=== PATIENT | male | born 1955 | race Hispanic/Latino ===

== ENCOUNTER 2017-07-21 16:15 | Inpatient (IN) | payer OTHER ==
[~2017-07-21] VITALS: Ht 165.1 cm; Wt 63.8 kg
[2017-07-21 17:01] LABS: ABSOLUTE BASOPHIL COUNT 0.1 /CUMM (0.0-0.2); ABSOLUTE EOSINOPHIL COUNT 1.6 /CUMM (0.0-0.7); ABSOLUTE GRANULOCYTE CT 9.2 /CUMM (1.4-6.5); ABSOLUTE LYMPH COUNT 0.9 /CUMM (1.2-3.4); ABSOLUTE MONOCYTE COUNT 0.7 /CUMM (0.10-0.60); BASOPHIL % 0.6 % (0.0-2.0); GRANULOCYTE % 73.8 % (42.2-75.2); HEMATOCRIT 41.4 % (42-52); MEAN CORPUSCULAR HGB 26.2 PG (27.0-31.0); MEAN CORPUSCULAR HGB CONC 32.7 G/DL (33.0-37.0); MEAN CORPUSCULAR VOLUME 80.1 FL (80.0-94.0); MEAN PLATELET VOLUME 9.2 FL (7.4-10.4); PLATELET COUNT 382 /CUMM (130-400); RBC DISTRIBUTION WIDTH 18.6 % (11.5-14.5); RED BLOOD CELL CT 5.17 /CUMM (4.70-6.10); WHITE BLOOD CELL COUNT 12.4 /CUMM (4.8-10.8)
--- NOTE | 2017-07-21 17:23 | ED GENERAL ADULT ---
History of Present Illness General Chief Complaint: Altered Mental Status Stated Complaint: HYPOGLYCEMIA Source: patient, family, EMS Exam Limitations: no limitations Allergies Coded Allergies: NO KNOWN ALLERGIES (01/23/13) Triage Note: BROUGHT IN TI THE ED FRO HYPOGLYCEMIA. FOUND TO BE AT 46 ON THE FIELD. RECEIVED DEXTROSE 10% IV. ARRIVES ALERT AND LETHARGIC. Triage Nurses Notes Reviewed? yes Onset: Abrupt Duration: hour(s): (1), better, changing over time, continues in ED Timing: single episode today Injury Environment: home Severity: moderate, severe No Modifying Factors: none HPI: 61-year-old male with past medical history of end-stage renal disease on peds elastosis and is limited diabetes since her evaluation of ALTERED status. According to family he was acutely confused, shaky, sweaty. They called 911 when EMS arrived they noted that his blood sugar was in the 30s. They started on D10. At time he arrived here his blood sugar to 75. Patient has no complaints himself. He denies chest pain shortness of breath nausea vomiting fever slurred speech weakness. He does note that he took his insulin today without eating a lunch. His family is at bedside reports that his mental status has returned to baseline. (Lino Ch) Vital Signs & Intake/Output Vital Signs & Intake/Output Vital Signs Date Time Temp Pulse Resp B/P B/P Pulse O2 O2 Flow FiO2 Mean Ox Delivery Rate 07/21 2058 96.2 81 18 162/72 97 Room Air 07/21 1842 93.6 72 18 139/72 98 Room Air 07/21 1632 64 16 147/64 99 Room Air (Christiana FREEDMAN,Lorenzo Tovar) Past History Travel History Traveled to [place] past 21 day No Medical History Any Pertinent Medical History? see below for history Renal: DIALYSIS Endocrine: DM Surgical History Surgical History: non-contributory Psychosocial History Who do you live with Patient/Self What is your primary language Thai Tobacco Use: Quit >30 days ago Family History Hx Contributory? No (Lino Ch) Review of Systems Review of Systems Constitutional: Reports: chills, diaphoresis. EENTM: Reports: no symptoms. Respiratory: Reports: no symptoms. Cardiovascular: Reports: no symptoms. GI: Reports: no symptoms. Genitourinary: Reports: no symptoms. Musculoskeletal: Reports: no symptoms. Skin: Reports: no symptoms. Neurological/Psychological: Reports: see HPI, confusion. Hematologic/Endocrine: Reports: no symptoms. Immunologic/Allergic: Reports: no symptoms. All Other Systems: Reviewed and Negative (Lino Ch) Physical Exam Physical Exam General Appearance: well developed/nourished, no apparent distress, alert, awake Head: atraumatic, normal appearance Eyes: Bilateral: normal appearance, PERRL, EOMI. Ears, Nose, Throat: normal pharynx, normal ENT inspection, hearing grossly normal Neck: normal inspection, supple, full range of motion Respiratory: normal breath sounds, chest non-tender, no respiratory distress, lungs clear Cardiovascular: regular rate/rhythm, normal peripheral pulses Peripheral Pulses: 2+ radial (R), 2+ radial (L) Gastrointestinal: normal bowel sounds, soft, non-tender, no organomegaly Back: normal inspection, normal range of motion, no vertebral tenderness, NO cva TENDERNESS Extremities: normal inspection, normal range of motion, no edema Neurologic/Psych: no motor/sensory deficits, awake, alert, oriented x 3, normal gait Skin: intact, normal color, warm/dry Lymphatic: no anterior cervical terra Core Measures ACS in differential dx? No CVA/TIA Diagnosis: No Sepsis Present: No Sepsis Focused Exam Completed? No (Lino Ch) Progress Differential Diagnoses I considered the following diagnoses in my evaluation of the patient: [Sepsis, pneumonia, UTI, hypoglycemia, cellulitis, CVA/TIA, drug intoxication, alcohol intoxication] Plan of Care: Orders Procedure Date/time Status Renal Dialysis Diet 07/22 B Active CBC WITHOUT DIFFERENTIAL 07/22 06 Active BASIC ELECTROLYTES PLUS BUN&CR 07/22 06 Active Lab Add-on Test 07/21 2314 Active Pathway - chart 07/22 2311 Active House Staff 07/22 2311 Active SPECIMEN TO BE OBTAINED 07/22 2311 Active ECHOCARDIOGRAM 07/22 2311 Active Saline Lock 07/21 2252 Active Misc Message 07/21 2252 Active ED Holding Orders 07/21 2252 Active Admit to inpatient 07/21 2252 Active Vital Signs 07/21 2252 Active Code Status 07/21 2252 Active Patient Data 07/21 2146 Active Add-on Test (ER Only) 07/21 2138 Active Add-on Test (ER Only) 07/22 2039 Active BLOOD CULTURE 07/21 1819 Active B-TYPE NATRIURETIC PEP (BNP) 07/21 1653 Complete Add-on Test (ER Only) 07/21 164 Active URINE DRUG SCREEN FOR ER ONLY 07/21 164 Complete EKG 07/21 164 Active URINALYSIS 07/21 161 Complete TROPONIN LEVEL 07/21 161 Complete LACTIC ACID 07/21 161 Complete ETHANOL 07/21 161 Complete COMPREHENSIVE METABOLIC PANEL 07/21 161 Complete CBC WITHOUT DIFFERENTIAL 07/21 161 Complete Weight 07/21 UNK Active VTE Mechanical Prophylaxis 07/21 UNK Active Vital Signs 07/21 UNK Active Intake & Output 07/21 UNK Active FingerStick- Glucose 07/21 UNK Active Activity/Ambulation 07/21 UNK Active Current Medications Sig/[place] Start time Last Medication Dose Stop Time Status Admin Heparin Sodium 5,000 UNIT Q8 07/22 0600 UNVr (Porcine) Laboratory Tests 07/21/172009: Urine Opiates Screen < 100, Methadone Screen < 40, Barbiturate Screen < 60, Ur Phencyclidine Scrn < 6.00, Amphetamines Screen < 100, U Benzodiazepines Scrn < 85, Urine Cocaine Screen < 50, Urine Cannabis Screen < 5.00, Urinalysis LIGHT H , Urine Color YEL, Urine Clarity HAZY H, Urine pH 7.0, Ur Specific [place] 1.015, Urine Protein >=300 H, Urine Ketones NEG, Urine Nitrite NEG, Urine Bilirubin NEG, Urine Urobilinogen 0.2, Ur Leukocyte Esterase MOD H, Ur Microscopic SEDIMENT EXAMINED, Urine RBC RARE, Urine WBC > 75 H, Ur Epithelial Cells RARE, Urine Bacteria RARE H, Urine Hemoglobin MOD H, Urine Glucose 250 H 07/21/171917: Lactic Acid Cancelled 07/21/17 165: Anion Gap 18 H, Estimated GFR 5 L, BUN/Creatinine Ratio 4.7 L, Glucose 106 H , Lactic Acid 0.7, Calcium 8.5, Total Bilirubin 0.6, AST 28, ALT 77 H, Alkaline Phosphatase 181 H, Troponin I < 0.01, Ndr-Y-Hzgxwabahim Pept 82928 H, Total Protein 6.7, Albumin 3.7, Globulin 3.0, Albumin/Globulin Ratio 1.2, CBC w Diff NO MAN DIFF REQ, RBC 5.17, MCV 80.1, MCH 26.2 L, MCHC 32.7 L, RDW 18.6 H, MPV 9.2, Gran % 73.8, Lymphocytes % 7.0 L, Monocytes % 5.6, Eosinophils % 13.0 H, Basophils % 0.6, Absolute Granulocytes 9.2 H, Absolute Lymphocytes 0.9 L, Absolute Monocytes 0.7 H, Absolute Eosinophils 1.6, Absolute Basophils 0.1, Serum Alcohol < 10.0 Microbiology 07/21 1818 BLOOD: Blood Culture - ORD 07/21 1818 BLOOD: Blood Culture - ORD Patient seen and evaluated. He is here with altered mental status. He is found to have a blood sugar of 80s in the field. He started on D10 here his sugar has increased to 75. He started returning to his baseline. According the family his mental status has returned to baseline after D10. On arrival to the ER patient is a rectal temp of 93.6. He is placed on the bear hugger EKG labs chest x-ray ordered. CT scan of the head and chest ordered. Blood work shows a white blood cell count of 12.4 with left shift. Chest x-ray suggests a left lower lobe pneumonia. Additionally urine shows signs of infection cultures ordered. Patient will be started on IV Rocephin and Zithromax for to be required pneumonia/possible UTI. Patient requires admission to the hospital for further evaluation and treatment case discussed with Dr. Villeda he agrees. Spoke with Dr. Bynum from nephrology who recommends contacting the patient's on -call sugar cane planting equipment operator Dr. Amaya for dialysis orders. Dr. Bynum does not KNOW the patient AND unable put in orders. CT scan of brain is within normal limits. CT scan of the chest suggests pulmonary edema as opposed to infiltrate. BNP ordered on. Patient is on peritoneal dialysis. He may be fluid overloaded usually does his dialysis at night. Diagnostic Imaging: Viewed by Me: Radiology Read. Discussed w/RAD: Radiology Read. Radiology Impression: PATIENT: JERI CHRISTIAN PRESENT AGE: 61 PATIENT ACCOUNT NO: [id number] : 56 LOCATION: [facility] ORDERING PHYSICIAN: Lino NOWAK SERVICE DATE: 07/21/17 EXAM TYPE: RAD - XRY-PORTABLE CHEST XRAY EXAMINATION: XR PORTABLE CHEST CLINICAL INFORMATION: Pneumonia, mental status change COMPARISON: 07/28/2008 chest x-ray TECHNIQUE: Portable AP view of the chest was obtained. FINDINGS: The cardiomediastinal silhouette is unremarkable. No pulmonary venous congestion. There is hazy interstitial pulmonary opacity in the right mid lung. The left lung is clear. No sizable pleural effusion or pneumothorax. The visualized bones are unremarkable. IMPRESSION: Hazy pulmonary interstitial opacity in the right mid lung can represent pneumonia. Clinical correlation is advised. DICTATED BY: Cruz Flynn MD DATE/TIME DICTATED:07/21/171730 LEASE PICKER:MIRELA DATE/TIME TRANSCRIBED:07/21/171730 CONFIDENTIAL, DO NOT COPY WITHOUT APPROPRIATE AUTHORIZATION. <Electronically signed in Other Vendor System> SIGNED BY: Cruz Flynn MD 07/21/171739, PATIENT: JERI CHRISTIAN PRESENT AGE: 61 PATIENT ACCOUNT NO: [id number] : 56 LOCATION: [facility] ORDERING PHYSICIAN: Lino NOWAK SERVICE DATE: 07/21/17 EXAM TYPE: CAT - CT HEAD WO IV CONTRAST EXAMINATION: CT HEAD WITHOUT CONTRAST CLINICAL INFORMATION: Lethargic COMPARISON: None TECHNIQUE: Contiguous axial imaging was performed from the skull base to vertex without intravenous administration of contrast. DLP: 621 mGy-cm FINDINGS: There is no evidence of acute intracranial hemorrhage or territorial infarction. No abnormal mass effect or midline shift is seen. Díaz to white matter differentiation is well preserved. No extra-axial fluid collections are identified. The ventricles are normal in size. There is no abnormal attenuation within the brain parenchyma. The osseous structures and soft tissues are normal. The mastoid air cells and visualized portions of the paranasal sinuses are well aerated. IMPRESSION: No CT evidence of acute intracranial bleed, no mass. No CT evidence of acute infarct. DICTATED BY: Cheyanne Dinh MD DATE/TIME DICTATED:07/21/172058 LEASE PICKER:MIRELA DATE/TIME TRANSCRIBED:07/21/172058 CONFIDENTIAL, DO NOT COPY WITHOUT APPROPRIATE AUTHORIZATION. <Electronically signed in Other Vendor System> SIGNED BY: Cheyanne Dinh MD 07/21/172103 Initial ED EKG: normal sinus rhythm, LEFT ATRIAL ABN qtc 495 (Myke NOWAK,Lino) Departure Departure Disposition: STILL A PATIENT Condition: Stable Clinical Impression Primary Impression: Pneumonia Qualifiers: Pneumonia type: due to unspecified organism Laterality: left Lung location: unspecified part of lung Qualified Code: J18.9 - Pneumonia, unspecified organism Secondary Impressions: Pulmonary edema Qualifiers: Chronicity: acute Qualified Code: J81.0 - Acute pulmonary edema Referrals: Ashley Ortiz APRN (PCP/Family) Departure Forms: Customer Survey General Discharge Information Admission Note Spoke With: Warren Lomax MD Documentation of Exam: Documentation of any treatments & extenuating circumstances including Concerns Regarding Discharge (functional status, medication knowledge or non-compliance, living conditions, etc.) that warrant an admission rather than observation: [IV antibiotics, IV fluids, serial labs, follow-up cultures, medication adjustment, serial chest x-rays] (Lino Ch) PA/MODEL TECHNICIAN Co-Sign Statement Statement: ED Attending supervision documentation- [x] I saw and evaluated the patient. I have also reviewed all the pertinent lab results and diagnostic results. I agree with the findings and the plan of care as documented in the PA's/MODEL TECHNICIAN's documentation. 5.27.18, 21:22... pt hypothermic w/ evidence of pneumonia, now comfortable in ED... merits admission for iv abx, jeanna stover. [] I have reviewed the ED Record and agree with the PA's/MODEL TECHNICIAN's documentation. [] Additions or exceptions (if any) to the PAs/MODEL TECHNICIAN's note and plan are summarized below: [] (Christiana FREEDMAN,Lorenzo Tovar) Critical Care Note Critical Care Note Critical Care Time: 30-74 min (Christiana FREEDMAN,Lorenzo Tovar)
--- NOTE | 2017-07-21 17:40 | RADIOLOGY REPORT ---
EXAMINATION: XR PORTABLE CHEST CLINICAL INFORMATION: Pneumonia, mental status change COMPARISON: 07/28/2008 chest x-ray TECHNIQUE: Portable AP view of the chest was obtained. FINDINGS: The cardiomediastinal silhouette is unremarkable. No pulmonary venous congestion. There is hazy interstitial pulmonary opacity in the right mid lung. The left lung is clear. No sizable pleural effusion or pneumothorax. The visualized bones are unremarkable. IMPRESSION: Hazy pulmonary interstitial opacity in the right mid lung can represent pneumonia. Clinical correlation is advised.
--- NOTE | 2017-07-21 21:04 | CT SCAN REPORT ---
EXAMINATION: CT HEAD WITHOUT CONTRAST CLINICAL INFORMATION: Lethargic COMPARISON: None TECHNIQUE: Contiguous axial imaging was performed from the skull base to vertex without intravenous administration of contrast. DLP: 621 mGy-cm FINDINGS: There is no evidence of acute intracranial hemorrhage or territorial infarction. No abnormal mass effect or midline shift is seen. Díaz to white matter differentiation is well preserved. No extra-axial fluid collections are identified. The ventricles are normal in size. There is no abnormal attenuation within the brain parenchyma. The osseous structures and soft tissues are normal. The mastoid air cells and visualized portions of the paranasal sinuses are well aerated. IMPRESSION: No CT evidence of acute intracranial bleed, no mass. No CT evidence of acute infarct.
--- NOTE | 2017-07-21 21:13 | CT SCAN REPORT ---
EXAMINATION: CT CHEST WO IV CONTRAST. CLINICAL INFORMATION: Hypothermia cough pneumonia COMPARISON: 2008 TECHNIQUE: Multidetector volumetric CT imaging of the chest was done. Axial MIP volume rendering provided. Sagittal and coronal reformatted images were obtained. CONTRAST: Noncontrasted study. DLP: 197 mGy-cm FINDINGS: CAGER OPERATOR: LINES/TUBES: Truck Engine Assembler reviewed, no lines. LUNGS: Lung parenchyma: The heart is enlarged, there is pulmonary vascular congestion. There is mild interstitial edema, patchy groundglass opacities likely sequela of edema rather than true infection. Lung nodules/masses: There are no suspicious nodules or masses, there are tiny scattered densities 2 mm or less, difficult to assess given the degree of congestion. AIRWAYS: Trachea and bronchi are normal. PLEURA: No significant effusion. MEDIASTINUM AND STEPHON: No mediastinal, hilar or axillary lymphadenopathy. No mediastinal mass. VESSELS: HEART AND PERICARDIUM: Thoracic aorta is normal in size. The heart is enlarged. No pericardial effusion. There are coronary calcifications. Pulmonary arteries are normal in size. LOWER NECK, AXILLA: The visualized thyroid gland is unremarkable. No axillary mass or adenopathy. VISUALIZED ABDOMEN: There is mild ascites, fluid around the liver. Mild fluid around the spleen. Heavy vascular calcifications of the aorta. CHEST WALL AND BONES: No chest wall mass. The visualized bony thorax is within normal limits. IMPRESSION: 1. Cardiomegaly. 2. Pulmonary vascular congestion, there are patchy groundglass opacities and interlobular septal thickening, this is most likely mild interstitial edema rather than infiltrates. Difficult to assess for underlying subtle infiltrates given the degree of edema. 3. No suspicious lung mass. There are tiny scattered densities 2 mm or less. 4. Incidental finding was made of fluid in the abdomen ascites.
--- NOTE | 2017-07-21 21:56 | History & Physical ---
Nandini Barton 07/21/172148: General Information and HPI MD Statement: I have seen and personally examined JERI WOLFE and documented this H&P. The patient is a 61 year old M who presented with a patient stated chief complaint of [Hypoglycemia/PNA]. Source of Information: patient, old records Exam Limitations: language barrier History of Present Illness: Mr. Wolfe is a 61yo M w/ PMH of ESRD, diabetes presented to the ER with hypoglycemia of 46/hypothermia of 93.1. Patient stated that he during lunch. Patient was then placed into IV dextrose push, and the blood sugar went up to 100 after treatment, and patient's become more alert and oriented 4. During our clinical interaction, patient was Italian-speaking, and the nephew was at bedside to provide translation. Per nephew, patient has been living with the nephews family for the past 2 years, was occasional similar symptoms every once in a while when patient got hypoglycemic. Today patient was injected his regular dose of morning insulin (supposed to be long-acting) later than the scheduled time, and patient skipped lunch after. Around 1:00 in the afternoon, patient was found to be on bed, confused, with diaphoresis and body shaking, and was found to be hypoglycemic around 40s. Patient was then brought to [place] [facility] for further evaluation. Patient was also complaining of some fatigue/not feeling well starting last Saturday, with occasional" feeling of hot" however denied any fevers/chills/body shaking/shortness of breath/chest pain. Patient at baseline has a dry cough on and off, without any production of sputum in the past few days. Patient also endorsed an episode of loose stool today, however denied any recent constipation/diarrhea. Patient had a blood work done about last , and was turned out to be normal. However no records was found in the past 10 years in our system, and patient was last admitted to [facility] in 2008 for chest pain, which turned out to be stress test negative. At baseline patient was alert and oriented x4, and independent on living, despite limited exertional tolerance that patient may become shortness of breath after flight of stairs. Patient was regularly being taken care at [facility] for previous admissions, with last admission about 2 months ago at [facility]. Patient was also seen a chronometer adjuster at [place], and claims to be had echocardiograph done about 2 weeks ago, was unremarkable results. Patient was also taking care on dialysis by public welfare director at [place], and patient was conducting peritoneal dialysis at home by himself twice daily, without much complication noted. Patient's diabetes and insulin regimen was managed by the PCP only at this point. Patient had family history of diabetes. About 2 years ago, patient also had a diabetic induced food infection of the right lower extremity, which advanced into gangrene/osteomyelitis, and part of the right heel has to be resected. Patient was at baseline independent walking without a walker/cane. During our clinical interaction, patient denied recent travel/sick contacts, fever/lightheadedness/diaphoresis/night sweat/weight change/cough/SOB/Chest Pain /Palpitation/Abdominal pain/bowel movement or urinary abnormality, or other skin /musculoskeletal/neurological/mood disorders, or dietary/appetite change. -Smoking: former smoker quitted 18yrs -Alcohol: rare use -Rec Drus: denied Allergies/Medications Allergies: Coded Allergies: NO KNOWN ALLERGIES (01/23/13) Past History Travel History Traveled to [place] past 21 day No Medical History Renal: DIALYSIS Endocrine: DM Surgical History Surgical History: Right heel debridement from osteomyelitis/gangarene Past Family/Social History Psychosocial History Smoking Status: Former Smoker (quitted >18yrs) ETOH Use: occasional use Illicit Drug Use: denies illicit drug use Review of Systems Review of Systems Constitutional: Reports: see HPI. Exam & Diagnostic Data Last 24 Hrs of Vital Signs/I&O Vital Signs Date Time Temp Pulse Resp B/P B/P Pulse O2 O2 Flow FiO2 Mean Ox Delivery Rate 07/21 2058 96.2 81 18 162/72 97 Room Air 07/21 1842 93.6 72 18 139/72 98 Room Air 07/21 1632 64 16 147/64 99 Room Air Physical Exam General Appearance Alert, Oriented X3, Cooperative, No Acute Distress Skin No Rashes, No Breakdown, No Significant Lesion Skin Temp/Moisture Exam: Warm/Dry Sepsis Skin Exam (color): Normal for Ethnicity HEENT Atraumatic, PERRLA, dry musosa Neck Supple, mild JVD Cardiovascular Regular Rate Lungs Clear to Auscultation, Normal Air Movement Abdomen Normal Bowel Sounds, distended with +ve ascites finding on imaging, no tenderness Neurological Normal Speech, Strength at 5/5 X4 Ext, Sensation Intact Extremities No Edema, Normal Pulses, No Tenderness/Swelling, s/p right heel resection from hx of osteomylities/gangarene Last 24 Hrs of Labs/Wilfr[place]: Laboratory Tests 07/21/172009: Urine Opiates Screen < 100, Methadone Screen < 40, Barbiturate Screen < 60, Ur Phencyclidine Scrn < 6.00, Amphetamines Screen < 100, U Benzodiazepines Scrn < 85, Urine Cocaine Screen < 50, Urine Cannabis Screen < 5.00, Urinalysis LIGHT H , Urine Color YEL, Urine Clarity HAZY H, Urine pH 7.0, Ur Specific [place] 1.015, Urine Protein >=300 H, Urine Ketones NEG, Urine Nitrite NEG, Urine Bilirubin NEG, Urine Urobilinogen 0.2, Ur Leukocyte Esterase MOD H, Ur Microscopic SEDIMENT EXAMINED, Urine RBC RARE, Urine WBC > 75 H, Ur Epithelial Cells RARE, Urine Bacteria RARE H, Urine Hemoglobin MOD H, Urine Glucose 250 H 07/21/178: Lactic Acid Cancelled 07/21/17 1653: Anion Gap 18 H, Estimated GFR 5 L, BUN/Creatinine Ratio 4.7 L, Glucose 106 H , Lactic Acid 0.7, Calcium 8.5, Total Bilirubin 0.6, AST 28, ALT 77 H, Alkaline Phosphatase 181 H, Troponin I < 0.01, Tuj-F-Ozgcrynirtc Pept 86075 H, Total Protein 6.7, Albumin 3.7, Globulin 3.0, Albumin/Globulin Ratio 1.2, CBC w Diff NO MAN DIFF REQ, RBC 5.17, MCV 80.1, MCH 26.2 L, MCHC 32.7 L, RDW 18.6 H, MPV 9.2, Gran % 73.8, Lymphocytes % 7.0 L, Monocytes % 5.6, Eosinophils % 13.0 H, Basophils % 0.6, Absolute Granulocytes 9.2 H, Absolute Lymphocytes 0.9 L, Absolute Monocytes 0.7 H, Absolute Eosinophils 1.6, Absolute Basophils 0.1, Serum Alcohol < 10.0 Microbiology 07/21 1818 BLOOD: Blood Culture - ORD 07/21 1818 BLOOD: Blood Culture - ORD Assessment/Plan Assessment: On admission, Vitals: Currently stable afebrile, rectal temp improved 96.2, BP 162/72, 97% on room air -CBC: Mild leukocytosis 12.4, H/H 13.5/41.4, -BMP: ESRD with creatinine 10.9, glucose 106, slightly elevated ALT 77, alk phos 181, troponin negative, -UA/Microbiology: UA positive for LE, pyuria -Chest CT: 1. Cardiomegaly. 2. Pulmonary vascular congestion, there are patchy groundglass opacities and interlobular septal thickening, this is most likely mild interstitial edema rather than infiltrates. Difficult to assess for underlying subtle infiltrates given the degree of edema. 3. No suspicious lung mass. There are tiny scattered densities 2 mm or less. 4. Incidental finding was made of fluid in the abdomen ascites. Problem list/Assessment/Hospital Course: #Insulin/ESRD induced hypoglycemia episodes: Taking into account of patient's late administered insulin the morning/skip lunch/ESRD induced slowed insulin clearance #Hypothemia, resolved s/p bear hugger #ESRD pending peritoneal dialysis, however no previous medical record was found in our system for dialysis regimens: Patient currently stable without electrolyte derangements, no urgent dialysis needed. #Questionable community-acquired pneumonia w/ with pulmonary congestion, however appears to be stable, unlikely in active infectious state #Eosinophilia of unclear etiology #PMH of HTN, PAD - Admit to general medicine, vitals per protocol -Supplemental O2 if needed, TRC/nebulizer if needed -Novolog SS/AccuChek/HbA1c -Pending Endo consult in the AM -Pending Nephro consult in the AM and arrange of peritoneal dialysis. -Will monitor off ABX, pending blood cutlures -Continue home meds but gradually resume BP meds as tolerated. DVT prophylaxis Pharm PPX + ALPS Renal Dialysis Diet Full Code As Ranked By This Provider Problem List: 1. Pulmonary edema Qualifiers Chronicity: acute Qualified Code: J81.0 - Acute pulmonary edema 2. Pneumonia Qualifiers Pneumonia type: due to unspecified organism Laterality: left Lung location: unspecified part of lung Qualified Code: J18.9 - Pneumonia, unspecified organism Core Measures/Misc (11/11) Acute Coronary Syndrome ACS Diagnosis: No Congestive Heart Failure Congestive Heart Failure Diagnosis No Cerebrovascular Accident CVA/TIA Diagnosis: No VTE (View Protocol) VTE Risk Factors Age>40 No Mechanical VTE Prophylaxis d/t N/A MechProphylax Ordered No VTE Pharm Prophylaxis d/t NA PharmProphylax ordered Sepsis (View protocol) Sepsis Present: No If YES complete Sepsis Event Note If YES complete Sepsis Event Note Neeta Florence 07/21/17 9017: General Information and HPI Allergies/Medications Home Med list Amlodipine Besylate 10 MG TABLET 1 TAB PO DAILY HTN (Reported) Aspirin (Ecotrin*) 81 MG TABLET.DR 1 TAB PO DAILY HEART HEALTH (Reported) Atorvastatin Calcium (Lipitor) 10 MG TABLET 1 TAB PO DAILY HEART HEATLH ( Reported) Calcitriol 0.25 MCG CAPSULE 1 CAP PO DAILY RENAL HEALHT (Reported) Carvedilol (Coreg) 25 MG TABLET 1 TAB PO BID BP (Reported) Cinacalcet HCl (Sensipar) 30 MG TABLET 1 TAB PO DAILY RENAL HEATLH (Reported) Folic Acid/Vit Bcomp,C (Dialyvite 800 Tablet) 0.8 MG TABLET 1 TAB PO DAILY RENAL HEALTH (Reported) Hydralazine HCl 10 MG TABLET 1 TAB PO TID BP (Reported) Losartan Potassium 100 MG TABLET 1 TAB PO DAILY BP (Reported) Mirtazapine 7.5 MG TABLET 1 TAB PO QPM MENTAL HEALTH (Reported) Novolin 70/30 (Novolin 70-30 100 Unit/Ml Vial) 100 UNIT/ML (70-30) VIAL 8 UNITS SC BID DIABETES (Reported) Pantoprazole Sodium 40 MG TABLET.DR 1 TAB PO DAILY GERD (Reported) Core Measures/Misc (11/11) Sepsis (View protocol) If YES complete Sepsis Event Note If YES complete Sepsis Event Note Resident Review Statement Resident Statement: examined this patient, discussed with application development intern, agreed with application development intern Other Findings: Ms Wolfe is a 61 year old primarily Italian speaking man w/ a PMHx of ESRD on PD (previously on HD), type 2 DM, PAD s/p R SFA lifestent (see 03/2015) and right partial calcanectomy for osteomyelitis of right foot with graft application (07/2015), h/o Peritonitis from PD cath 2014, recent hospitalizations in 02/2017 for GI bleeding requiring 3 units of PRBC transfusion at [facility]. He was brought in to the ER for AMS with increasing confusion, shakiness and diaphoresis on the day of admission, and was found to be hypoglycemic upto 30s. As per the nephew, who was the chief historian who reported that the patient took his insulin twice, and did not eat his lunch/dinner. He currently lives with his nephew for the last 2 years, and reported several similar episodes in the last few months. No recent changes in medications. No dyspnea, chest pain, palpitations. Reported occasional diarrhea. He uses peritoneal dialysis twice daily, and has been compliant with his use. He does not make much urine. He sees Dr. Ryder Meza, [facility] for his regular nephrology needs. Last echocardiogram done in 2016. At the time of admission, vitals temperature 93.6(improved), pulse rate 72, respiration 18, blood pressure 139/72, 98% on room air. General Exam: AAOx3, No acute distress, Skin: No rashes, ulcer on the right calcaneal region 5 cm x 7 cm;HEENT: PERRLA, EOMI;Neck: Supple, No JVD; No cervical lymphadenopathy;CVS: Reg Rate, Normal S1,S2, systolic murmur;Resp: Normal air entry, no ronchi/rales;Abdomen: Abdominal distention, Soft, No tenderness, Normal Bowel Sounds;Neuro: Normal Speech, Strength 5/5 b/l x 4 extremities, Sensation intact, CN III-XII NL, Reflexes 2+;Extremities: No cyanosis, no pedal edema, fistula on LUE. Pertinent lab findings: WBC 12.4, platelet count 382, hemoglobin 13.5, sodium 137, potassium 3.9, chloride 93, bicarbonate 26, anion gap 18, BUN 51, creatinine 10.9. Lactic acid 0.7. Liver chemistries-AST 28, ALT 77, alkaline phosphatase 181 (likely bone derived). 51312, U tox negative for opiates, benzodiazepines. Urinalysis reveals urine protein greater than 300, leukocyte esterase moderate, pyuria greater than 75. Bacteria rare. Glucose 250. CT chest 1. Cardiomegaly. 2. Pulmonary vascular congestion, there are patchy groundglass opacities and interlobular septal thickening, this is most likely mild interstitial edema rather than infiltrates. Difficult to assess for underlying subtle infiltrates given the degree of edema. 3. No suspicious lung mass. There are tiny scattered densities 2 mm or less. 4. Incidental finding was made of fluid in the abdomen ascites. Head CT negative for any acute bleeding, chest x-ray reveals hazy pulmonary interstitial opacity. Etiology in his case is likely hypoglycemia from his use long-acting insulin use , in end-stage renal disease which likely needs some readjustments. Since he uses NPH 70/30, and has not been compliant with his dietary recommendations, which must have led to his symptoms. In regards to his CT findings suggestive of vascular congestion and likely underlying pneumonia is coincidental, which needs to be evaluated while he is in the hospital; has vascular congestion and elevation and proBNP likely from his fluid overload. He has been given antibiotics, and blood cultures/lower respiratory cultures are drawn. Problem list: #1 end-stage renal disease requiring peritoneal dialysis #2 history of type 2 diabetes #3 hypertension #4 history of peripheral arterial disease #5 history of GI bleed #6 volume overload- mild on cxr. #7 hypoglycemia, hypothermia #8 Elevated Alk phos, likely renal osteodystrophy Plan: #1 end-stage renal disease requiring peritoneal dialysis-arrangements will be made for the patient to receive peritoneal dialysis while he is in the hospital. Check calcium, magnesium, phosphorus. Nephrology consult. Peritoneal dialysis with 2 L-1.5% dextrose plus her regular calcium of exchanges up to 5 times per day as per Dr. Love. Restart his home medications of sevelemer, calcitriol. Hold anti-hypertensives, and restart in the am. #2 volume overload mild-there could be a possible underlying pneumonia, which is not completely ruled out. No JVD or crackles on exam. He received antibiotics while he is in the ED. Hold off antibiotics at this time, pending cultures. If he has worsening symptoms, or has unstable hemodynamics, would consider restarting antibiotics. Peritoneal dialysis starting at 7 AM on 07/22/2017. Hold anti-hypertensives, if BP low. #3 hypoglycemia-likely from increased insulin use, and inability to keep up with diet recommendation. Hold off on long-acting insulin for now, until dialysis is done. Restart short-acting insulin in the a.m. Renal dialysis diet. Accu- Cheks. Restart 6 units Levemir twice a day in the a.m, since he is on 8 units of 70/30 in a.m. and 10 units of 70/30 in p.m. Monitor blood sugars closely. Would need readjusting 70/30 dose at the time of discharge. #4 history of peripheral arterial disease- currently on ASA only. Plavix has been on hold. Continue statin. Housekeeping checklist: #1 DVT prophylaxis-subcutaneous heparin. #2 GI prophylaxis-Protonix #3 CODE STATUS-full code #4 diet-renal dialysis diet. #5 medication reconciliation-down, updated. #6 consults-endocrinology, nephrology. #7 dialysis-peritoneal dialysis, with 1.5% dextrose and regular calcium-2 L 5 times per day starting at 7 AM. Arrangements made, after discussing with Dr. Love. Dami FREEDMAN, [facility] 07/22/17 0523: Core Measures/Misc (11/11) Sepsis (View protocol) If YES complete Sepsis Event Note If YES complete Sepsis Event Note Attending MD Review Statement Attending Statement Attending MD Statement: examined this patient, discuss w/resident/PA/DIRECTOR EMERGENCY, agreed w/resident/PA/DIRECTOR EMERGENCY, discussed with family, reviewed images, amended to note Attending Assessment/Plan: 61 yo Italian speaking M with h/o ESRD on peritoneal dialysis (was previously on HD, follows at [facility] with Ryder Meza), T1DM with neuropathy, PVD s/p right femoral stent, is brought in after being found confused, shaky and diaphoretic with blood sugar in 30's. He was also hypothermic. Patient took his insulin dose but did not eat lunch. He is compliant with meds and performs his own dialysis. He was given dextrose with immediate effect after which patient was able to feed himself. Temperature improved with shane hugger. Patient has had a similar episode of hypoglycemia requring admission to [place] and adjustment of his diabetic meds. Currently patient denies any chest pain, dyspnea, cough or phlegm. Patient still makes small amount of urine. Vitals are stable. Exam: AAO, in no distress, Neck supple, Chest few bibasilar crackles, Heart S1S2 regular, systolic murmur+, Abd soft, NT, peritoneal dialysis catheter site C/D/I. LE no edema. Left wrist AV fistula thrill+, bruit+. Labs: WBC 12.4, eosinophils 13, AG 18, BUN 51, creat 10.9, glucose 106, lactic acid 0.7, ALT 77, Alk phos 181, trop neg, proBNP 96253, UA proteinuria, mod LE, WBC > 75. Urine tox negative. S. Alcohol <10. CXR: hazy pulmonary interstitial opacity in right mid lung can represent a pneumonia. CT head: no acute pathology. CT chest: cardiomegaly, pulmonary vascular congestion, patchy groundglass opacities and interlobular septal thickening mild interstitial edema rather than infiltrates, no lung mass. Abdomen ascites. EKG: sinus rhythm, no acute changes. Assessment and plan: 1. Hypoglycemia in this patient with Type 1 diabetes 2/2 noncompliance with diet 2. Hypothermia resolved with bear hugger 3. ESRD on peritoneal dialysis 4. Mild fluid overload as evidenced by CT chest and elevated proBNP but no evidence of respiratory distress or hypoxia. Pneumonia seems less likely. 5. Essential hypertension 6. History of PAD 7. Eosinophilia ?etiology 8. Leukocytosis - reactive - Admit to General medicine - Accucheks Q4 - Encourage PO intake, diabetic diet - Insulin SS, hold off long acting insulin, check HbA1c - Endo consult - Initiate peritoneal dialysis as per Nephro recs - Patient does not appear to be in florid edema/ overload status, no need for urgent dialysis. - Obtain baseline echo - He received IV antibiotics for possible pneumonia, we will watch him off antibiotics for now. Follow blood cultures. - Resume all home meds, gradually resume BP meds DVT ppx Hep SC. Full code.
--- NOTE | 2017-07-21 23:38 | Admission Certification ---
Admission Certification Certification Statement - As attending physician, I certify that at the time of - admission, based on clinical presentation, severity of - symptoms, need for further diagnostic testing and - therapeutic interventions, and risk of adverse outcomes - without in-hospital treatment, in my clinical assessment, - this patient requires an acute hospital stay for a minimum - of two nights or longer. I have also considered psychsocial - factors such as support system, advanced age, financial - issues, cognitive issues, and failed out-patient treatments, - past re-admission history, safety of patient, and lack of - compliance as applicable. Specific rationale supporting this admission is: Hypoglycemia and hypothermia in this patient with T1DM and ESRD on peritoneal dialysis, possible pneumonia vs fluid overload.
[2017-07-22] MEDS ORDERED: COREG25 M1 PO (00:27)
[2017-07-22] MEDS ORDERED: AMLODIPINE BESY10 M1 PO (00:27)
[2017-07-22] MEDS ORDERED: PANTOPRAZOLE SO40 M1 PO (00:28)
[2017-07-22] MEDS ORDERED: MIRTAZAPINE7.5 M1 PO (00:28)
[2017-07-22] MEDS ORDERED: DIALYVITE 8000.8 MG PO (00:28)
[2017-07-22] MEDS ORDERED: SENSIPAR30 M1 PO (00:29)
[2017-07-22] MEDS ORDERED: NOVOLIN 70100 UNIT/1 SC (00:29)
[2017-07-22] MEDS ORDERED: LIPITOR10 M1 PO (00:29)
[2017-07-22] MEDS ORDERED: CALCITRIOL0.25 MC1 PO (00:30)
[2017-07-22] MEDS ORDERED: ASPIRIN EC81 M1 PO (00:30)
[2017-07-22] MEDS ORDERED: LOSARTAN POTAS100 M1 PO (00:30)
[2017-07-22] MEDS ORDERED: HYDRALAZINE HCL10 M1 PO (00:30)
[2017-07-22 01:16] VITALS: BP 110/86
[2017-07-22 06:10] VITALS: BP 120/84
--- NOTE | 2017-07-22 09:31 | PN- Housestaff ---
See Addendum Subjective Follow-up For: Hypoglycemia Hypothermia End-stage renal disease on peritoneal dialysis Subjective: No complaints. Review of Systems Constitutional: Reports: see HPI. Objective Last 24 Hrs of Vital Signs/I&O Vital Signs Date Time Temp Pulse Resp B/P B/P Pulse O2 O2 Flow FiO2 Mean Ox Delivery Rate 07/22 0610 98.4 80 20 120/84 95 Room Air 07/22 0116 98.1 82 20 110/86 93 Room Air 07/22 0105 99 Room Air 07/22 0010 96.8 88 18 165/72 99 07/21 2059 96.2 81 18 162/72 97 Room Air 07/21 1842 93.6 72 18 139/72 98 Room Air 07/21 1632 64 16 147/64 99 Room Air Intake & Output 07/22 1600 07/22 0800 07/22 0000 Intake Total 240 0 Output Total Balance 240 0 Intake, Oral 240 0 Patient 129 lb 130 lb Weight Weight Bed scale Reported by Patient Measurement Method Physical Exam General Appearance: Alert, Oriented X3, Cooperative Cardiovascular: Regular Rate, Normal S1, Normal S2 Lungs: Clear to Auscultation, Normal Air Movement Abdomen: Normal Bowel Sounds, Soft, No Tenderness Extremities: No Clubbing, No Cyanosis, No Edema Current Medications: Current Medications Sig/[place] Start time Last Medication Dose Route Stop Time Status Admin Amlodipine Besylate 10 MG DAILY 07/22 0900 AC PO Aspirin Buffered 81 MG DAILY 07/22 0900 AC PO Atorvastatin Calcium 10 MG 1700 07/22 1700 AC PO Azithromycin 500 MG ONCE ONE 07/21 1830 DC 07/21 Sodium Chloride 250 ML IV 07/21 192 183 Calcitriol 0.25 MCG DAILY 07/22 0900 AC PO Carvedilol 25 MG BID 07/22 0130 DC PO Ceftriaxone Sodium 0 .STK-MED ONE 07/21 1842 DC .ROUTE Ceftriaxone Sodium 1,000 MG ONCE ONE 07/21 1830 DC 07/21 IV 07/21 183 183 Cinacalcet 30 MG DAILY 07/22 0900 AC PO Heparin Sodium 5,000 UNIT Q8 07/22 0600 CAN (Porcine) SC Heparin Sodium 5,000 UNIT Q8 07/22 0600 AC 07/22 (Porcine) SC 0647 Hydralazine HCl 10 MG TID 07/22 0900 CAN PO Hydralazine HCl 10 MG TID 07/22 0130 DC PO Insulin Aspart 0 TIDAC 07/22 0800 AC SC Losartan Potassium 100 MG DAILY 07/22 09 CAN PO Mirtazapine 7.5 MG QPM 07/22 2100 AC PO Multivitamins 1 TAB DAILY 07/22 09 AC PO Non-Formulary 0 SEE ADMIN CRITERIA 07/22 0400 CAN Medication ANY Omeprazole 40 MG DAILY AC 07/22 0700 AC 07/22 PO 0647 Last 24 Hrs of Lab/Wilfrido Results Last 24 Hrs of Labs/Mics: Laboratory Tests 07/21/172009: Urine Opiates Screen < 100, Methadone Screen < 40, Barbiturate Screen < 60, Ur Phencyclidine Scrn < 6.00, Amphetamines Screen < 100, U Benzodiazepines Scrn < 85, Urine Cocaine Screen < 50, Urine Cannabis Screen < 5.00, Urinalysis LIGHT H , Urine Color YEL, Urine Clarity HAZY H, Urine pH 7.0, Ur Specific Shubert 1.015, Urine Protein >=300 H, Urine Ketones NEG, Urine Nitrite NEG, Urine Bilirubin NEG, Urine Urobilinogen 0.2, Ur Leukocyte Esterase MOD H, Ur Microscopic SEDIMENT EXAMINED, Urine RBC RARE, Urine WBC > 75 H, Ur Epithelial Cells RARE, Urine Bacteria RARE H, Urine Hemoglobin MOD H, Urine Glucose 250 H 07/21/178: Lactic Acid Cancelled 07/21/17 1653: Anion Gap 18 H, Estimated GFR 5 L, BUN/Creatinine Ratio 4.7 L, Glucose 106 H , Lactic Acid 0.7, Calcium 8.5, Phosphorus 5.0 H, Magnesium 2.2, Total Bilirubin 0.6, AST 28, ALT 77 H, Alkaline Phosphatase 181 H, Troponin I < 0.01 , Kmj-R-Ylctbrgcvyy Pept 07190 H, Total Protein 6.7, Albumin 3.7, Globulin 3.0, Albumin/Globulin Ratio 1.2, CBC w Diff NO MAN DIFF REQ, RBC 5.17, MCV 80.1, MCH 26.2 L, MCHC 32.7 L, RDW 18.6 H, MPV 9.2, Gran % 73.8, Lymphocytes % 7.0 L, Monocytes % 5.6, Eosinophils % 13.0 H, Basophils % 0.6, Absolute Granulocytes 9.2 H, Absolute Lymphocytes 0.9 L, Absolute Monocytes 0.7 H, Absolute Eosinophils 1.6, Absolute Basophils 0.1, Serum Alcohol < 10.0 Microbiology 07/21 2009 URINE ROUT: Legionella Antigen - COMP 07/21 2009 URINE ROUT: Streptococcus pneumoniae Antigen (M - COMP 07/21 1818 BLOOD: Blood Culture - CAN Cancelled: SPECIMEN NOT RECEIVED IN LABORATORY 07/21 1818 BLOOD: Blood Culture - CAN Cancelled: SPECIMEN NOT RECEIVED IN LABORATORY Assessment/Plan Assessment: 61-year-old gentleman history of end-stage renal disease on peritoneal dialysis, type 1 diabetes with neuropathy, peripheral vascular disease status post right femoral stent was found confused and diaphoretic with fingerstick and 30s. Was brought in to ED and was found to be hypothermic. 1. Hypoglycemia. Received dextrose in the ED to good effect. Hold home insulin regimen. Eventual assessment of risks and benefits to find a happy medium to minimize episodes of hypoglycemia and maximizing quality of life, in this 61-year-old gentleman with end-stage renal disease on dialysis. Will check HbA1c (goal should be 8-9), may perhaps benefit from a less stringent glucose control. 2. Hypothermia. Resolved. Rule out infectious etiologies. Will follow cultures. 3. End-stage renal disease on peritoneal dialysis. Nephrology consult, dialysis per protocol. Continue calcitriol, cinacalcet and Nephrocaps. 4. History of CAD. Continue aspirin and atorvastatin. Coreg held on admission. 5. Hypertension. Continue Norvasc and hydralazine. 6. History of GERD. Continue Prilosec. Full code. Heparin for DVT prophylaxis. Consistent carbohydrate diet. Problem List: 1. Pulmonary edema Pain Ratin Pain Location: None Pain Goal: Remain pain free Pain Plan: PRN Tomorrow's Labs & Rationales: Leukocytosis Dialysis patient
[2017-07-22 11:05] LABS: ABSOLUTE BASOPHIL COUNT 0 /CUMM (0.0-0.2); ABSOLUTE GRANULOCYTE CT 6.5 /CUMM (1.4-6.5); ABSOLUTE LYMPH COUNT 1.2 /CUMM (1.2-3.4); ABSOLUTE MONOCYTE COUNT 0.9 /CUMM (0.10-0.60); BASOPHIL % 0.4 % (0.0-2.0); EOSINOPHIL % 10.7 % (0-5); GRANULOCYTE % 66.4 % (42.2-75.2); MEAN CORPUSCULAR HGB 26.3 PG (27.0-31.0); MEAN CORPUSCULAR HGB CONC 32.7 G/DL (33.0-37.0); MEAN CORPUSCULAR VOLUME 80.6 FL (80.0-94.0); MEAN PLATELET VOLUME 9.7 FL (7.4-10.4); PLATELET COUNT 401 /CUMM (130-400); RED BLOOD CELL CT 4.71 /CUMM (4.70-6.10); WHITE BLOOD CELL COUNT 9.7 /CUMM (4.8-10.8)
--- NOTE | 2017-07-22 13:17 | Cons- Endocrinology ---
General Information and HPI Consulting Request Date of Consult: 07/22/17 Requested By: medical team Reason for Consult: management of uncontrolled diabetes / hypoglycemia due to insulin Source of Information: patient, family Exam Limitations: language barrier History of Present Illness: 61 y/o male, hx of diabetes type 2 for more than 30 years compliacted with renal failure and on dialysis. He used to be on Novolin 70/30 14 units twice a day which was recently decreased to 8 units twice a day due to decreased po intake and hypoglycemia. He presented with hypothermia and hypoglycemia with glucose level in the 40s. In hospital, he is on Novolog coverage before meals only when his glucose level is above 150. His recent FSGs were 74, 100, 192, 123 and 104. Allergies/Medications Allergies: Coded Allergies: NO KNOWN ALLERGIES (01/23/13) Home Med List: Amlodipine Besylate 10 MG TABLET 1 TAB PO DAILY HTN (Reported) Aspirin (Ecotrin*) 81 MG TABLET.DR 1 TAB PO DAILY HEART HEALTH (Reported) Atorvastatin Calcium (Lipitor) 10 MG TABLET 1 TAB PO DAILY HEART HEATLH ( Reported) Calcitriol 0.25 MCG CAPSULE 1 CAP PO DAILY RENAL HEALHT (Reported) Carvedilol (Coreg) 25 MG TABLET 1 TAB PO BID BP (Reported) Cinacalcet HCl (Sensipar) 30 MG TABLET 1 TAB PO DAILY RENAL HEATLH (Reported) Folic Acid/Vit Bcomp,C (Dialyvite 800 Tablet) 0.8 MG TABLET 1 TAB PO DAILY RENAL HEALTH (Reported) Hydralazine HCl 10 MG TABLET 1 TAB PO TID BP (Reported) Losartan Potassium 100 MG TABLET 1 TAB PO DAILY BP (Reported) Mirtazapine 7.5 MG TABLET 1 TAB PO QPM MENTAL HEALTH (Reported) Novolin 70/30 (Novolin 70-30 100 Unit/Ml Vial) 100 UNIT/ML (70-30) VIAL 8 UNITS SC BID DIABETES (Reported) Pantoprazole Sodium 40 MG TABLET.DR 1 TAB PO DAILY GERD (Reported) Review of Systems Review of Systems Constitutional: Reports: see HPI. Cardiovascular: Denies: chest pain. Respiratory: Denies: short of breath. GI: Denies: abdominal pain. Hematologic/Endocrine: Reports: see HPI. 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 Home Smoking Status: Former Smoker (quitted >18yrs) ETOH Use: occasional use Illicit Drug Use: denies illicit drug use Exam & Diagnostic Data Last 24 Hrs of Vital Signs/I&O Vital Signs Date Time Temp Pulse Resp B/P B/P Pulse O2 O2 Flow FiO2 Mean Ox Delivery Rate 07/22 0942 80 120/84 07/22 0610 98.4 80 20 120/84 95 Room Air 07/22 0116 98.1 82 20 110/86 93 Room Air 07/22 0105 99 Room Air 07/22 0010 96.8 88 18 165/72 99 07/21 2059 96.2 81 18 162/72 97 Room Air 07/21 1842 93.6 72 18 139/72 98 Room Air 07/21 1632 64 16 147/64 99 Room Air Intake & Output 07/22 1600 07/22 0800 07/22 0000 Intake Total 240 0 Output Total Balance 240 0 Intake, Oral 240 0 Patient 129 lb 130 lb Weight Weight Bed scale Reported by Patient Measurement Method Physical Exam General Appearance: no apparent distress, alert, awake Neck: normal inspection Respiratory: lungs clear Cardiovascular: regular rate/rhythm Gastrointestinal: distention Extremities: no edema Labs/Wilfrido Results: Laboratory Tests 07/22 07/21 1015 2009 Chemistry Sodium (137 - 145 mmol/L) 134 L Potassium (3.5 - 5.1 mmol/L) 4.5 Chloride (98 - 107 mmol/L) 92 L Carbon Dioxide (22 - 30 mmol/L) 26 Anion Gap (5 - 16) 15 BUN (9 - 20 mg/dL) 56 H Creatinine (0.7 - 1.2 mg/dL) 12.0 *H Estimated GFR (>60 ml/min) 4 L BUN/Creatinine Ratio (7 - 25 %) 4.7 L Hemoglobin A1c (4.2 - 5.8 %) 7.6 H Hematology CBC w Diff NO MAN DIFF REQ WBC (4.8 - 10.8 /CUMM) 9.7 RBC (4.70 - 6.10 /CUMM) 4.71 Hgb (14.0 - 18.0 G/DL) 12.4 L Hct (42 - 52 %) 38.0 L MCV (80.0 - 94.0 FL) 80.6 MCH (27.0 - 31.0 PG) 26.3 L MCHC (33.0 - 37.0 G/DL) 32.7 L RDW (11.5 - 14.5 %) 19.0 H Plt Count (130 - 400 /CUMM) 401 H MPV (7.4 - 10.4 FL) 9.7 Gran % (42.2 - 75.2 %) 66.4 Lymphocytes % (20.5 - 51.1 %) 12.8 L Monocytes % (1.7 - 9.3 %) 9.7 H Eosinophils % (0 - 5 %) 10.7 H Basophils % (0.0 - 2.0 %) 0.4 Absolute Granulocytes (1.4 - 6.5 /CUMM) 6.5 Absolute Lymphocytes (1.2 - 3.4 /CUMM) 1.2 Absolute Monocytes (0.10 - 0.60 /CUMM) 0.9 H Absolute Eosinophils (0.0 - 0.7 /CUMM) 1.0 Absolute Basophils (0.0 - 0.2 /CUMM) 0 Toxicology Urine Opiates Screen (>2000 NG/ML) < 100 Methadone Screen (>300 NG/ML) < 40 Barbiturate Screen (>200 NG/ML) < 60 Ur Phencyclidine Scrn (>25 NG/ML) < 6.00 Amphetamines Screen (>1000 NG/ML) < 100 U Benzodiazepines Scrn (>200 NG/ML) < 85 Urine Cocaine Screen (>300 NG/ML) < 50 Urine Cannabis Screen (>50 NG/ML) < 5.00 Urines Urinalysis LIGHT H Urine Color (YEL,AMB,STR) YEL Urine Clarity (CLEAR) HAZY H Urine pH (5.0 - 8.0) 7.0 Ur Specific [place] (1.001 - 1.035) 1.015 Urine Protein (NEG,<30 MG/DL) >=300 H Urine Ketones (NEG) NEG Urine Nitrite (NEG) NEG Urine Bilirubin (NEG) NEG Urine Urobilinogen (0.1 - 1.0 EU/dl) 0.2 Ur Leukocyte Esterase (NEG) MOD H Ur Microscopic SEDIMENT EXAMINED Urine RBC (0 - 5 /HPF) RARE Urine WBC (0 - 2 /HPF) > 75 H Ur Epithelial Cells (NONE,FEW) RARE Urine Bacteria (NEG/NONE) RARE H Urine Hemoglobin (NEG) MOD H Urine Glucose (N MG/DL) 250 H 07/21 07/21 191 1653 Chemistry Sodium (137 - 145 mmol/L) 137 Potassium (3.5 - 5.1 mmol/L) 3.9 Chloride (98 - 107 mmol/L) 93 L Carbon Dioxide (22 - 30 mmol/L) 26 Anion Gap (5 - 16) 18 H BUN (9 - 20 mg/dL) 51 H Creatinine (0.7 - 1.2 mg/dL) 10.9 *H Estimated GFR (>60 ml/min) 5 L BUN/Creatinine Ratio (7 - 25 %) 4.7 L Glucose (65 - 99 mg/dL) 106 H Lactic Acid (0.7 - 2.1 mmol/L) Cancelled 0.7 Calcium (8.4 - 10.2 mg/dL) 8.5 Phosphorus (2.5 - 4.5 mg/dL) 5.0 H Magnesium (1.6 - 2.3 mg/dL) 2.2 Total Bilirubin (0.2 - 1.3 mg/dL) 0.6 AST (17 - 59 U/L) 28 ALT (21 - 72 U/L) 77 H Alkaline Phosphatase (< 127 U/L) 181 H Troponin I (<0.11 ng/ml) < 0.01 [id number] Pept (<125 pg/mL) 39514 H Total Protein (6.3 - 8.2 g/dL) 6.7 Albumin (3.5 - 5.0 g/dL) 3.7 Globulin (1.9 - 4.2 gm/dL) 3.0 Albumin/Globulin Ratio (1.1 - 2.2 %) 1.2 Hematology CBC w Diff NO MAN DIFF REQ WBC (4.8 - 10.8 /CUMM) 12.4 H RBC (4.70 - 6.10 /CUMM) 5.17 Hgb (14.0 - 18.0 G/DL) 13.5 L Hct (42 - 52 %) 41.4 L MCV (80.0 - 94.0 FL) 80.1 MCH (27.0 - 31.0 PG) 26.2 L MCHC (33.0 - 37.0 G/DL) 32.7 L RDW (11.5 - 14.5 %) 18.6 H Plt Count (130 - 400 /CUMM) 382 MPV (7.4 - 10.4 FL) 9.2 Gran % (42.2 - 75.2 %) 73.8 Lymphocytes % (20.5 - 51.1 %) 7.0 L Monocytes % (1.7 - 9.3 %) 5.6 Eosinophils % (0 - 5 %) 13.0 H Basophils % (0.0 - 2.0 %) 0.6 Absolute Granulocytes (1.4 - 6.5 /CUMM) 9.2 H Absolute Lymphocytes (1.2 - 3.4 /CUMM) 0.9 L Absolute Monocytes (0.10 - 0.60 /CUMM) 0.7 H Absolute Eosinophils (0.0 - 0.7 /CUMM) 1.6 Absolute Basophils (0.0 - 0.2 /CUMM) 0.1 Toxicology Serum Alcohol (<10 MG/DL) < 10.0 Assessment/Plan Assessment/Plan 61 y/o male, hx of diabetes type 2 for more than 30 years compliacted with renal failure and on dialysis. He used to be on Novolin 70/30 14 units twice a day which was recently decreased to 8 units twice a day due to decreased po intake and hypoglycemia. He presented with hypothermia and hypoglycemia with glucose level in the 40s. His glucose and temperature has improved. Plan : 1. adjust Novolog coverage before meals and add Novoloh coverage at bedtime; detail see the inpatient DM orders; 2. monitor FSGs. will follow. Inpatient Diabetes Orders Before Each Meal: Bolus Insulin: Novolog < 80 mg/dl: no coverage 80-100 mg/dl: no coverage 101-120 mg/dl: no coverage 121-150 mg/dl: no coverage 151-200 mg/dl: 2 units 201-250 mg/dl: 3 units 251-300 mg/dl: 4 units 301-350 mg/dl: 5 units 351-400 mg/dl: 6 units > 400 mg/dl: 7 units Bedtime: Bolus Insulin: Novolog < 80 mg/dl: no coverage 80-100 mg/dl: no coverage 101-120 mg/dl: no coverage 121-150 mg/dl: no coverage 151-200 mg/dl: no coverage 201-250 mg/dl: no coverage 251-300 mg/dl: 2 units 301-350 mg/dl: 3 units 351-400 mg/dl: 4 units > 400 mg/dl: 4 units Consult Acknowledgment - Thank you for your consult request.
[2017-07-22 14:09] VITALS: BP 100/62
--- NOTE | 2017-07-22 15:38 | Cons- Nephrology ---
See Addendum General Information and HPI Consulting Request Date of Consult: 07/22/17 Requested By: Warren Lomax MD Reason for Consult: ESRD Source of Information: patient Exam Limitations: language barrier (plant chief used) History of Present Illness: Patient is a 61-year-old male with a past medical history most significant for end-stage renal disease on peritoneal dialysis, diabetes who initially presented to the ER last night with hypoglycemia and hypothermia. It sounds like the patient's insulin is recently been down titrated due to decreased oral intake and hypoglycemia. On Presentation, blood pressure 147/64rectal temp 93.6. Labs notable for white blood cell count 12.4, hemoglobin 13.5. Urinalysis with greater than 75 WBC's. The patient has been seen by endocrine - insulin has been adjusted. His hypothermia has resolved. Some micro has been sent although not a urine culture. The patient says that he has been on peritoneal dialysis for the last 8 years. He uses a cycler machine at night. He is on machine for 9 hours. He uses yellow and green bed transfers overnight exchanges and then to also a purple extraneal bag for during the day. No cloudy fluid or abd pain. No issues with his exit site. Dry weight 130lbs. Allergies/Medications Allergies: Coded Allergies: NO KNOWN ALLERGIES (01/23/13) Home Med List: Amlodipine Besylate 10 MG TABLET 1 TAB PO DAILY HTN (Reported) Aspirin (Ecotrin*) 81 MG TABLET.DR 1 TAB PO DAILY HEART HEALTH (Reported) Atorvastatin Calcium (Lipitor) 10 MG TABLET 1 TAB PO DAILY HEART HEATLH ( Reported) Calcitriol 0.25 MCG CAPSULE 1 CAP PO DAILY RENAL HEALHT (Reported) Carvedilol (Coreg) 25 MG TABLET 1 TAB PO BID BP (Reported) Cinacalcet HCl (Sensipar) 30 MG TABLET 1 TAB PO DAILY RENAL HEATLH (Reported) Folic Acid/Vit Bcomp,C (Dialyvite 800 Tablet) 0.8 MG TABLET 1 TAB PO DAILY RENAL HEALTH (Reported) Hydralazine HCl 10 MG TABLET 1 TAB PO TID BP (Reported) Losartan Potassium 100 MG TABLET 1 TAB PO DAILY BP (Reported) Mirtazapine 7.5 MG TABLET 1 TAB PO QPM MENTAL HEALTH (Reported) Novolin 70/30 (Novolin 70-30 100 Unit/Ml Vial) 100 UNIT/ML (70-30) VIAL 8 UNITS SC BID DIABETES (Reported) Pantoprazole Sodium 40 MG TABLET. 1 TAB PO DAILY GERD (Reported) Current Medications: Current Medications Sig/[place] Start time Last Medication Dose Route Stop Time Status Admin Amlodipine Besylate 10 MG DAILY 07/22 0900 AC 07/22 PO 0942 Aspirin Buffered 81 MG DAILY 07/22 0900 AC 07/22 PO 0942 Atorvastatin Calcium 10 MG 1700 07/22 1700 AC PO Azithromycin 500 MG ONCE ONE 07/21 1830 DC 07/21 Sodium Chloride 250 ML IV 07/21 192 1839 Calcitriol 0.25 MCG DAILY 07/22 0900 AC 07/22 PO 0942 Carvedilol 25 MG BID 07/22 0130 DC PO Ceftriaxone Sodium 0 .STK-MED ONE 07/21 1842 DC .ROUTE Ceftriaxone Sodium 1,000 MG ONCE ONE 07/21 1830 DC 07/21 IV 07/21 183 1830 Cinacalcet 30 MG DAILY 07/22 0900 AC 07/22 PO 0942 Heparin Sodium 5,000 UNIT Q8 07/22 0600 CAN (Porcine) SC Heparin Sodium 5,000 UNIT Q8 07/22 0600 AC 07/22 (Porcine) SC 1323 Hydralazine HCl 10 MG TID 07/22 0900 CAN PO Hydralazine HCl 10 MG TID 07/22 0130 DC PO Insulin Aspart 0 TIDAC/HS 07/22 1700 AC SC Insulin Aspart 0 TIDAC 07/22 0800 DC 07/22 SC 1216 Losartan Potassium 100 MG DAILY 07/22 0900 CAN PO Mirtazapine 7.5 MG QPM 07/22 2100 AC PO Multivitamins 1 TAB DAILY 07/22 0900 AC 07/22 PO 0942 Non-Formulary 0 SEE ADMIN CRITERIA 07/22 0400 CAN Medication ANY Omeprazole 40 MG DAILY AC 07/22 0700 AC 07/22 PO 0647 Review of Systems Review of Systems: Complete 14 point ROS neg except as per HPI Past History Travel History Traveled to [place] past 21 day No Medical History Blood Transfusion Hx: Yes Neurological: NONE EENT: glaucoma Cardiovascular: hypertension, hyperlipidemia Respiratory: pneumonia Gastrointestinal: NONE Hepatic: NONE Renal: ESRD PERIOTONEAL DIALYISIS Musculoskeletal: CHRONIC FOOT ULCERS Psychiatric: NONE Endocrine: DM Blood Disorders: anemia, DVT Cancer(s): NONE INCINERATOR ATTENDANT/Reproductive: NONE Surgical History Surgical History: 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 Home Smoking Status: Former Smoker (quitted >18yrs) ETOH Use: occasional use Illicit Drug Use: denies illicit drug use Exam & Diagnostic Data Vital Signs and I&O Vital Signs Date Time Temp Pulse Resp B/P B/P Pulse O2 O2 Flow FiO2 Mean Ox Delivery Rate 07/22 1409 98.2 87 20 100/62 94 Room Air 07/22 0942 80 120/84 07/22 0610 98.4 80 20 120/84 95 Room Air 07/22 0116 98.1 82 20 110/86 93 Room Air 07/22 0105 99 Room Air 07/22 0010 96.8 88 18 165/72 99 07/21 2059 96.2 81 18 162/72 97 Room Air 07/21 1842 93.6 72 18 139/72 98 Room Air 07/21 1632 64 16 147/64 99 Room Air Intake & Output 07/22 1600 07/22 0400 07/21 1600 07/21 0400 07/20 1600 07/20 0400 Intake Total 600 0 Output Total Balance 600 0 Intake, Oral 600 0 Patient 129 lb 129 lb Weight Weight Bed scale Bed scale Measurement Method Physical Exam: Gen - OK appearing Head - NCAT Eyes - anicteric sclera, EOMI Neck - supple, no LAD CV - RRR, no m/r/g Chest - clear, no w/r/r Abd - soft, NTND, PD catheter under dressing Upper ext - warm, no edema Lower ext - warm, no edema Skin - no rash or jaundice Neuro - AOX3, grossly nonfocal Results Pertinent Lab Results: Laboratory Tests 07/22 07/21 1015 2009 Chemistry Sodium (137 - 145 mmol/L) 134 L Potassium (3.5 - 5.1 mmol/L) 4.5 Chloride (98 - 107 mmol/L) 92 L Carbon Dioxide (22 - 30 mmol/L) 26 Anion Gap (5 - 16) 15 BUN (9 - 20 mg/dL) 56 H Creatinine (0.7 - 1.2 mg/dL) 12.0 *H Estimated GFR (>60 ml/min) 4 L BUN/Creatinine Ratio (7 - 25 %) 4.7 L Hemoglobin A1c (4.2 - 5.8 %) 7.6 H Hematology CBC w Diff NO MAN DIFF REQ WBC (4.8 - 10.8 /CUMM) 9.7 RBC (4.70 - 6.10 /CUMM) 4.71 Hgb (14.0 - 18.0 G/DL) 12.4 L Hct (42 - 52 %) 38.0 L MCV (80.0 - 94.0 FL) 80.6 MCH (27.0 - 31.0 PG) 26.3 L MCHC (33.0 - 37.0 G/DL) 32.7 L RDW (11.5 - 14.5 %) 19.0 H Plt Count (130 - 400 /CUMM) 401 H MPV (7.4 - 10.4 FL) 9.7 Gran % (42.2 - 75.2 %) 66.4 Lymphocytes % (20.5 - 51.1 %) 12.8 L Monocytes % (1.7 - 9.3 %) 9.7 H Eosinophils % (0 - 5 %) 10.7 H Basophils % (0.0 - 2.0 %) 0.4 Absolute Granulocytes (1.4 - 6.5 /CUMM) 6.5 Absolute Lymphocytes (1.2 - 3.4 /CUMM) 1.2 Absolute Monocytes (0.10 - 0.60 /CUMM) 0.9 H Absolute Eosinophils (0.0 - 0.7 /CUMM) 1.0 Absolute Basophils (0.0 - 0.2 /CUMM) 0 Toxicology Urine Opiates Screen (>2000 NG/ML) < 100 Methadone Screen (>300 NG/ML) < 40 Barbiturate Screen (>200 NG/ML) < 60 Ur Phencyclidine Scrn (>25 NG/ML) < 6.00 Amphetamines Screen (>1000 NG/ML) < 100 U Benzodiazepines Scrn (>200 NG/ML) < 85 Urine Cocaine Screen (>300 NG/ML) < 50 Urine Cannabis Screen (>50 NG/ML) < 5.00 Urines Urinalysis LIGHT H Urine Color (YEL,AMB,STR) YEL Urine Clarity (CLEAR) HAZY H Urine pH (5.0 - 8.0) 7.0 Ur Specific [place] (1.001 - 1.035) 1.015 Urine Protein (NEG,<30 MG/DL) >=300 H Urine Ketones (NEG) NEG Urine Nitrite (NEG) NEG Urine Bilirubin (NEG) NEG Urine Urobilinogen (0.1 - 1.0 EU/dl) 0.2 Ur Leukocyte Esterase (NEG) MOD H Ur Microscopic SEDIMENT EXAMINED Urine RBC (0 - 5 /HPF) RARE Urine WBC (0 - 2 /HPF) > 75 H Ur Epithelial Cells (NONE,FEW) RARE Urine Bacteria (NEG/NONE) RARE H Urine Hemoglobin (NEG) MOD H Urine Glucose (N MG/DL) 250 H 07/21 07/21 1918 1653 Chemistry Sodium (137 - 145 mmol/L) 137 Potassium (3.5 - 5.1 mmol/L) 3.9 Chloride (98 - 107 mmol/L) 93 L Carbon Dioxide (22 - 30 mmol/L) 26 Anion Gap (5 - 16) 18 H BUN (9 - 20 mg/dL) 51 H Creatinine (0.7 - 1.2 mg/dL) 10.9 *H Estimated GFR (>60 ml/min) 5 L BUN/Creatinine Ratio (7 - 25 %) 4.7 L Glucose (65 - 99 mg/dL) 106 H Lactic Acid (0.7 - 2.1 mmol/L) Cancelled 0.7 Calcium (8.4 - 10.2 mg/dL) 8.5 Phosphorus (2.5 - 4.5 mg/dL) 5.0 H Magnesium (1.6 - 2.3 mg/dL) 2.2 Total Bilirubin (0.2 - 1.3 mg/dL) 0.6 AST (17 - 59 U/L) 28 ALT (21 - 72 U/L) 77 H Alkaline Phosphatase (< 127 U/L) 181 H Troponin I (<0.11 ng/ml) < 0.01 [id number] Pept (<125 pg/mL) 42632 H Total Protein (6.3 - 8.2 g/dL) 6.7 Albumin (3.5 - 5.0 g/dL) 3.7 Globulin (1.9 - 4.2 gm/dL) 3.0 Albumin/Globulin Ratio (1.1 - 2.2 %) 1.2 Hematology CBC w Diff NO MAN DIFF REQ WBC (4.8 - 10.8 /CUMM) 12.4 H RBC (4.70 - 6.10 /CUMM) 5.17 Hgb (14.0 - 18.0 G/DL) 13.5 L Hct (42 - 52 %) 41.4 L MCV (80.0 - 94.0 FL) 80.1 MCH (27.0 - 31.0 PG) 26.2 L MCHC (33.0 - 37.0 G/DL) 32.7 L RDW (11.5 - 14.5 %) 18.6 H Plt Count (130 - 400 /CUMM) 382 MPV (7.4 - 10.4 FL) 9.2 Gran % (42.2 - 75.2 %) 73.8 Lymphocytes % (20.5 - 51.1 %) 7.0 L Monocytes % (1.7 - 9.3 %) 5.6 Eosinophils % (0 - 5 %) 13.0 H Basophils % (0.0 - 2.0 %) 0.6 Absolute Granulocytes (1.4 - 6.5 /CUMM) 9.2 H Absolute Lymphocytes (1.2 - 3.4 /CUMM) 0.9 L Absolute Monocytes (0.10 - 0.60 /CUMM) 0.7 H Absolute Eosinophils (0.0 - 0.7 /CUMM) 1.6 Absolute Basophils (0.0 - 0.2 /CUMM) 0.1 Toxicology Serum Alcohol (<10 MG/DL) < 10.0 Imaging/Other Studies: CT IMPRESSION: 1. Cardiomegaly. 2. Pulmonary vascular congestion, there are patchy groundglass opacities and interlobular septal thickening, this is most likely mild interstitial edema rather than infiltrates. Difficult to assess for underlying subtle infiltrates given the degree of edema. 3. No suspicious lung mass. There are tiny scattered densities 2 mm or less. 4. Incidental finding was made of fluid in the abdomen ascites. EXAM TYPE: RAD - XRY-PORTABLE CHEST XRAY EXAMINATION: XR PORTABLE CHEST CLINICAL INFORMATION: Pneumonia, mental status change COMPARISON: 07/28/2008 chest x-ray TECHNIQUE: Portable AP view of the chest was obtained. FINDINGS: The cardiomediastinal silhouette is unremarkable. No pulmonary venous congestion. There is hazy interstitial pulmonary opacity in the right mid lung. The left lung is clear. No sizable pleural effusion or pneumothorax. The visualized bones are unremarkable. IMPRESSION: Hazy pulmonary interstitial opacity in the right mid lung can represent pneumonia. Clinical correlation is advised. Assessment/Plan Assessment/Recommendations Assessment: ESRD - Restarted PD. Unable to do PD with cycler while inpatient. Had been on all 1.5% dianeal exchanges although with suggested pulm edema, will alternate with 2.5% dianeal exchanges. No clinical evidence of peritonitis. Anemia - Hg above goal - no need for LINN. Hypothermia - Resolved. On empiric abx. ?PNA. Should get UCx but already on abx. Doubt peritonitis but can check PD fluid cell count and culture as well. Recommendations: -Will switch to alternating 1.5% and 2.5% dianeal exchanges - can do q6hrs ( total of 4 exchanges a day) -Will order cell count and culture from PD fluid -No need for LINN -Would send UCx Please call [phone] with ?'s
[2017-07-22 21:38] VITALS: BP 134/66
[2017-07-23 06:20] VITALS: BP 122/78
--- NOTE | 2017-07-23 07:37 | PN- Housestaff ---
Abdirizak Vo 07/23/17 0737: Subjective Follow-up For: Hypoglycemia Hypothermia End-stage renal disease on peritoneal dialysis Complaints: no complaints Subjective: I have seen and examined the patient today morning, he sends to be resting comfortably, no new complaints, explained that checking his sugar and regular monitoring SLIDING scale insulin according to the sugar is very important to avoid hypoglycemia. This was reinforced at multiple locations. We'll be changing her NovoLog from insulin 70/30 for better glucose control Review of Systems Constitutional: Reports: see HPI. Objective Last 24 Hrs of Vital Signs/I&O Vital Signs Date Time Temp Pulse Resp B/P B/P Pulse O2 O2 Flow FiO2 Mean Ox Delivery Rate 07/23 1405 97.3 91 20 150/80 94 Room Air 07/23 0832 91 122/78 07/23 0620 98.3 91 18 122/78 92 Room Air 07/22 2138 98.4 92 18 134/66 93 Intake & Output 07/23 1600 07/23 0800 07/23 0000 Intake Total 360 300 400 Output Total 300 0 3050 Balance 60 300 -2650 Intake, Oral 360 300 400 Output, 300 0 2800 Dialysate Output, Urine 250 Patient 63.758 kg Weight Weight Bed scale Measurement Method Physical Exam General Appearance: Alert, Oriented X3, Cooperative, No Acute Distress Skin: No Rashes, No Breakdown Cardiovascular: Normal S1, Normal S2, No Murmurs Lungs: Clear to Auscultation, Normal Air Movement Abdomen: Normal Bowel Sounds, Soft, No Tenderness Extremities: No Clubbing, No Cyanosis, No Edema, Normal Pulses Vascular: Normal Pulses Current Medications: Current Medications Sig/[place] Start time Last Medication Dose Route Stop Time Status Admin Amlodipine Besylate 10 MG DAILY 07/22 09 DCD 07/23 PO 0832 Aspirin Buffered 81 MG DAILY 07/22 0900 DCD 07/23 PO 0832 Atorvastatin Calcium 10 MG 1700 07/22 1700 DCD 07/23 PO 1630 Calcitriol 0.25 MCG DAILY 07/22 899 DCD 07/23 PO 0832 Cinacalcet 30 MG DAILY 07/22 09 DCD 07/23 PO 0832 Heparin Sodium 5,000 UNIT Q8 07/22 0600 DCD 07/23 (Porcine) SC 0536 Insulin Aspart 0 TIDAC/HS 07/22 1700 DCD 07/23 SC 1204 Mirtazapine 7.5 MG QPM 07/22 2100 DCD 07/22 PO 2107 Multivitamins 1 TAB DAILY 07/22 0900 DCD 07/23 PO 0832 Omeprazole 40 MG DAILY AC 07/22 0700 DCD 07/23 PO 0536 Last 24 Hrs of Lab/[place] Results Last 24 Hrs of Labs/Mics: Laboratory Tests 07/23/17 0120: Fluid WBC 2, Fld Total RBCs Counted 4 H Microbiology 07/23 0120 BODY FLUID: Body Fluid Culture - RES 07/23 0120 BODY FLUID: Gram Stain - RES Lines/Diet/Fluids Restraints: none Assessment/Plan Assessment: 61-year-old gentleman history of end-stage renal disease on peritoneal dialysis, type 1 diabetes with neuropathy, peripheral vascular disease status post right femoral stent was found confused and diaphoretic with fingerstick and 30s. Was brought in to ED and was found to be hypothermic. 1. Hypoglycemia. Received dextrose in the ED to good effect. Endocrinology on board. With patient's blood glucoses are better controlled now. Plan to switch him to NovoLog from 7030 insulin for better control of the sugar. Consider counseling done for regular monitoring of fingersticks and monitor sliding scale accordingly. New sliding scale on discharge prescribed as per inpatient. 2. Hypothermia. Resolved. Rule out infectious etiologies. Will follow cultures. 3. End-stage renal disease on peritoneal dialysis. Nephrology consult, dialysis per protocol. Continue calcitriol, cinacalcet and Nephrocaps. 4. History of CAD. Continue aspirin and atorvastatin. Coreg held on admission. 5. Hypertension. Continue Norvasc and hydralazine. 6. History of GERD. Continue Prilosec. Full code. Heparin for DVT prophylaxis. Consistent carbohydrate diet. Problem List: 1. Hypoglycemia Pain Ratin Pain Location: none Pain Goal: Remain pain free Pain Plan: current Tomorrow's Labs & Rationales: d/c today Discharge Plan Discharge Disposition: home Stable for Discharge? Yes Anticipated Discharge (Day): today If Discharged Today/In 24 Hrs: CMR done Alvaro Vidal 07/23/17 1609: Attending Review Statement Attending Statement Attending MD Statement: examined this patient, discuss w/resident/PA/CLINICAL RESEARCH NURSE COORDINATOR, agreed w/resident/PA/CLINICAL RESEARCH NURSE COORDINATOR, reviewed EMR data (avail), discussed with nursing, discussed with case mgmt Attending Assessment/Plan: pt being dced home in stable condition. d/w pt the care plan. no more hypoglycemic events. see dc summary for more details.
--- NOTE | 2017-07-23 09:43 | PN- Diabetes ---
Assessment/Plan Diabetes Assessment: 61 y/o male, hx of diabetes type 2 for more than 30 years compliacted with renal failure and on dialysis. He used to be on Novolin 70/30 14 units twice a day which was recently decreased to 8 units twice a day due to decreased po intake and hypoglycemia. He presented with hypothermia and hypoglycemia with glucose level in the 40s. In the hospital, he was put on Novolog coverage before meals ( the coverage starts when FSG is above 150) and Novolog coverage at bedtime ( the coverage starts when FSG is above 250). His FSGs were 187, 211, 139, 141, 200 and 190. Plan: 1. adjusted Novolog coverage before meals; detail see the inpatient DM order; 2. continue the current Novolog coverage at bedtime; 3. monitor FSGs. will follow. Inpatient Diabetes Orders Before Each Meal: Bolus Insulin: Novolog < 80 mg/dl: no coverage 80-100 mg/dl: no coverage 101-120 mg/dl: 2 units 121-150 mg/dl: 2 units 151-200 mg/dl: 3 units 201-250 mg/dl: 4 units 251-300 mg/dl: 5 units 301-350 mg/dl: 6 units 351-400 mg/dl: 7 units > 400 mg/dl: 8 units Subjective Subjective: He feels well this morning. Objective Last 24 Hrs of Vital Signs/I&O Vital Signs Date Time Temp Pulse Resp B/P B/P Pulse O2 O2 Flow FiO2 Mean Ox Delivery Rate 07/23 0832 91 122/78 07/23 0620 98.3 91 18 122/78 92 Room Air 07/22 2138 98.4 92 18 134/66 93 07/22 1409 98.2 87 20 100/62 94 Room Air Intake & Output 07/23 1600 07/23 0800 07/23 0000 Intake Total 300 400 Output Total 0 3050 Balance 300 -2650 Intake, Oral 300 400 Output, 0 2800 Dialysate Output, Urine 250 Patient 141 lb Weight Weight Bed scale Measurement Method Findings Pertinent Lab/Wilfrido Results: Laboratory Tests 07/23 07/22 0120 1015 Chemistry Sodium (137 - 145 mmol/L) 134 L Potassium (3.5 - 5.1 mmol/L) 4.5 Chloride (98 - 107 mmol/L) 92 L Carbon Dioxide (22 - 30 mmol/L) 26 Anion Gap (5 - 16) 15 BUN (9 - 20 mg/dL) 56 H Creatinine (0.7 - 1.2 mg/dL) 12.0 *H Estimated GFR (>60 ml/min) 4 L BUN/Creatinine Ratio (7 - 25 %) 4.7 L Hemoglobin A1c (4.2 - 5.8 %) 7.6 H Hematology CBC w Diff NO MAN DIFF REQ WBC (4.8 - 10.8 /CUMM) 9.7 RBC (4.70 - 6.10 /CUMM) 4.71 Hgb (14.0 - 18.0 G/DL) 12.4 L Hct (42 - 52 %) 38.0 L MCV (80.0 - 94.0 FL) 80.6 MCH (27.0 - 31.0 PG) 26.3 L MCHC (33.0 - 37.0 G/DL) 32.7 L RDW (11.5 - 14.5 %) 19.0 H Plt Count (130 - 400 /CUMM) 401 H MPV (7.4 - 10.4 FL) 9.7 Gran % (42.2 - 75.2 %) 66.4 Lymphocytes % (20.5 - 51.1 %) 12.8 L Monocytes % (1.7 - 9.3 %) 9.7 H Eosinophils % (0 - 5 %) 10.7 H Basophils % (0.0 - 2.0 %) 0.4 Absolute Granulocytes (1.4 - 6.5 /CUMM) 6.5 Absolute Lymphocytes (1.2 - 3.4 /CUMM) 1.2 Absolute Monocytes (0.10 - 0.60 /CUMM) 0.9 H Absolute Eosinophils (0.0 - 0.7 /CUMM) 1.0 Absolute Basophils (0.0 - 0.2 /CUMM) 0 Other Body Source Fluid WBC (0 - 5 /CUMM) 2 Fld Total RBCs Counted (0 /CUMM) 4 H
[2017-07-23 14:05] VITALS: BP 150/80
--- NOTE | 2017-07-23 15:23 | PN- Nephrology ---
Assessment/Plan Nephrology Assessment: 1. ESRD, on peritoneal dialysis; no evidence for peritonitis 2. Hypoglycemia/hypothermia -resolved 3. Pyuria (75 WBC) -being treated empirically for UTI 4. Diabetes mellitus Suggestion: 1. We will continue alternating 1.5% with 2.5% dialysis solutions on an every 6 hours basis 2. Consider transitioning to an oral antibiotic 3. Mobilize Subjective Subjective: Patient feeling well. Denies pain or shortness of breath. Afebrile with no further hypothermia. WBC down to 9.7. Endocrinology following regarding management of blood sugar. PD fluid remains clear. PD cell count only 2 WBCs, culture results pending but will likely be negative. PD balance uncertain but appears to be about even. Objective Vital Signs and I&Os Vital Signs Date Time Temp Pulse Resp B/P B/P Pulse O2 O2 Flow FiO2 Mean Ox Delivery Rate 07/23 1405 97.3 91 20 150/80 94 Room Air 07/23 0832 91 122/78 07/23 0620 98.3 91 18 122/78 92 Room Air 07/22 2138 98.4 92 18 134/66 93 Intake & Output 07/23 1600 07/23 0400 07/22 1600 07/22 0400 07/21 1600 07/21 0400 Intake Total 660 400 600 0 Output Total 300 3050 Balance 360 -2650 600 0 Intake, Oral 660 400 600 0 Output, 300 2800 Dialysate Output, Urine 250 Patient 141 lb 129 lb 129 lb Weight Weight Bed scale Bed scale Bed scale Measurement Method Physical Exam: General: Well-developed male in NAD Skin: No rash or jaundice HEENT: Conjunctivae pink, sclerae anicteric, mucous membranes moist Neck: Without masses or thyromegaly, no supraclavicular or cervical adenopathy Chest: Clear to P&A Heart: Regular rate and rhythm without S3 or rub Abdomen: Soft and nontender without palpable masses or organomegaly; PD catheter exit site clean and dry Extremities: Without cyanosis or edema Neuro: Cognitively intact, no focal findings, no asterixis or myoclonus Results Pertinent Lab Results: Laboratory Tests 07/23 07/22 0120 1015 Chemistry Sodium (137 - 145 mmol/L) 134 L Potassium (3.5 - 5.1 mmol/L) 4.5 Chloride (98 - 107 mmol/L) 92 L Carbon Dioxide (22 - 30 mmol/L) 26 Anion Gap (5 - 16) 15 BUN (9 - 20 mg/dL) 56 H Creatinine (0.7 - 1.2 mg/dL) 12.0 *H Estimated GFR (>60 ml/min) 4 L BUN/Creatinine Ratio (7 - 25 %) 4.7 L Hemoglobin A1c (4.2 - 5.8 %) 7.6 H Hematology CBC w Diff NO MAN DIFF REQ WBC (4.8 - 10.8 /CUMM) 9.7 RBC (4.70 - 6.10 /CUMM) 4.71 Hgb (14.0 - 18.0 G/DL) 12.4 L Hct (42 - 52 %) 38.0 L MCV (80.0 - 94.0 FL) 80.6 MCH (27.0 - 31.0 PG) 26.3 L MCHC (33.0 - 37.0 G/DL) 32.7 L RDW (11.5 - 14.5 %) 19.0 H Plt Count (130 - 400 /CUMM) 401 H MPV (7.4 - 10.4 FL) 9.7 Gran % (42.2 - 75.2 %) 66.4 Lymphocytes % (20.5 - 51.1 %) 12.8 L Monocytes % (1.7 - 9.3 %) 9.7 H Eosinophils % (0 - 5 %) 10.7 H Basophils % (0.0 - 2.0 %) 0.4 Absolute Granulocytes (1.4 - 6.5 /CUMM) 6.5 Absolute Lymphocytes (1.2 - 3.4 /CUMM) 1.2 Absolute Monocytes (0.10 - 0.60 /CUMM) 0.9 H Absolute Eosinophils (0.0 - 0.7 /CUMM) 1.0 Absolute Basophils (0.0 - 0.2 /CUMM) 0 Other Body Source Fluid WBC (0 - 5 /CUMM) 2 Fld Total RBCs Counted (0 /CUMM) 4 H 07/21 Chemistry Lactic Acid Cancelled Toxicology Urine Opiates Screen (>2000 NG/ML) < 100 Methadone Screen (>300 NG/ML) < 40 Barbiturate Screen (>200 NG/ML) < 60 Ur Phencyclidine Scrn (>25 NG/ML) < 6.00 Amphetamines Screen (>1000 NG/ML) < 100 U Benzodiazepines Scrn (>200 NG/ML) < 85 Urine Cocaine Screen (>300 NG/ML) < 50 Urine Cannabis Screen (>50 NG/ML) < 5.00 Urines Urinalysis LIGHT H Urine Color (YEL,AMB,STR) YEL Urine Clarity (CLEAR) HAZY H Urine pH (5.0 - 8.0) 7.0 Ur Specific [place] (1.001 - 1.035) 1.015 Urine Protein (NEG,<30 MG/DL) >=300 H Urine Ketones (NEG) NEG Urine Nitrite (NEG) NEG Urine Bilirubin (NEG) NEG Urine Urobilinogen (0.1 - 1.0 EU/dl) 0.2 Ur Leukocyte Esterase (NEG) MOD H Ur Microscopic SEDIMENT EXAMINED Urine RBC (0 - 5 /HPF) RARE Urine WBC (0 - 2 /HPF) > 75 H Ur Epithelial Cells (NONE,FEW) RARE Urine Bacteria (NEG/NONE) RARE H Urine Hemoglobin (NEG) MOD H Urine Glucose (N MG/DL) 250 H 07/21 1653 Chemistry Sodium (137 - 145 mmol/L) 137 Potassium (3.5 - 5.1 mmol/L) 3.9 Chloride (98 - 107 mmol/L) 93 L Carbon Dioxide (22 - 30 mmol/L) 26 Anion Gap (5 - 16) 18 H BUN (9 - 20 mg/dL) 51 H Creatinine (0.7 - 1.2 mg/dL) 10.9 *H Estimated GFR (>60 ml/min) 5 L BUN/Creatinine Ratio (7 - 25 %) 4.7 L Glucose (65 - 99 mg/dL) 106 H Lactic Acid (0.7 - 2.1 mmol/L) 0.7 Calcium (8.4 - 10.2 mg/dL) 8.5 Phosphorus (2.5 - 4.5 mg/dL) 5.0 H Magnesium (1.6 - 2.3 mg/dL) 2.2 Total Bilirubin (0.2 - 1.3 mg/dL) 0.6 AST (17 - 59 U/L) 28 ALT (21 - 72 U/L) 77 H Alkaline Phosphatase (< 127 U/L) 181 H Troponin I (<0.11 ng/ml) < 0.01 [id number] Pept (<125 pg/mL) 78324 H Total Protein (6.3 - 8.2 g/dL) 6.7 Albumin (3.5 - 5.0 g/dL) 3.7 Globulin (1.9 - 4.2 gm/dL) 3.0 Albumin/Globulin Ratio (1.1 - 2.2 %) 1.2 Hematology CBC w Diff NO MAN DIFF REQ WBC (4.8 - 10.8 /CUMM) 12.4 H RBC (4.70 - 6.10 /CUMM) 5.17 Hgb (14.0 - 18.0 G/DL) 13.5 L Hct (42 - 52 %) 41.4 L MCV (80.0 - 94.0 FL) 80.1 MCH (27.0 - 31.0 PG) 26.2 L MCHC (33.0 - 37.0 G/DL) 32.7 L RDW (11.5 - 14.5 %) 18.6 H Plt Count (130 - 400 /CUMM) 382 MPV (7.4 - 10.4 FL) 9.2 Gran % (42.2 - 75.2 %) 73.8 Lymphocytes % (20.5 - 51.1 %) 7.0 L Monocytes % (1.7 - 9.3 %) 5.6 Eosinophils % (0 - 5 %) 13.0 H Basophils % (0.0 - 2.0 %) 0.6 Absolute Granulocytes (1.4 - 6.5 /CUMM) 9.2 H Absolute Lymphocytes (1.2 - 3.4 /CUMM) 0.9 L Absolute Monocytes (0.10 - 0.60 /CUMM) 0.7 H Absolute Eosinophils (0.0 - 0.7 /CUMM) 1.6 Absolute Basophils (0.0 - 0.2 /CUMM) 0.1 Toxicology Serum Alcohol (<10 MG/DL) < 10.0
[2017-07-23] MEDS ORDERED: NOVOLOG FL100 UNIT/1 SC (15:53)
--- NOTE | 2017-07-23 15:55 | Patient Discharge Instructions ---
Discharge Instructions General Discharge Information You were seen/treated for: HYPOGLYCEMIA Special Instructions: please follow up wiht your PCP within one week of dishcarge. please follow up with your diabetes doctor within one week of discharge. please continue to take your new form of insulin as prescribed. please contact your doctor if you have any issues. please adminiter the insulin as per sliding scale on the prescription. Diet Continue normal diet: No Recommended Diet: Diabetic Acute Coronary Syndrome Inclusion Criteria At DC or during hospital stay patient has or had the following: ACS DIAGNOSIS No Discharge Core Measures Meds if any: Prescribed or Continued at Discharge Meds if any: NOT Prescribed or Continued at Discharge Congestive Heart Failure Inclusion Criteria At DC or during hospital stay patient has or had the following: CHF DIAGNOSIS No Discharge Core Measures Meds if any: Prescribed or Continued at Discharge Meds if any: NOT Prescribed or Continued at Discharge Cerebrovascular accident Inclusion Criteria At DC or during hospital stay patient has or had the following: CVA/TIA Diagnosis No Discharge Core Measures Meds if any: Prescribed or Continued at Discharge Meds if any: NOT Prescribed or Continued at Discharge Venous thromboembolism Inclusion Criteria VTE Diagnosis No VTE Type NONE VTE Confirmed by (Test) NONE Discharge Core Measures - Per Current guidelines, there needs to be overlap - treatment for the first 5 days of Warfarin therapy. - If discharged on Warfarin prior to 5 days of - overlap therapy, the patient will need to be - assessed for post discharge needs including - *Post discharge parental anticoagulation - *Warfarin and/or parental anticoagulation education - *Follow up date to check INR post discharge At least 5 days overlap therapy as Inpatient No Meds if any: Prescribed or Continued at Discharge Note: Overlap Therapy is Warfarin and Anticoagulant Meds if any: NOT Prescribed or Continued at Discharge
== END 2017-07-23 17:33 | DRG 638 ==
LOC: ERH 16:15 → 2NA 22:53 → ERHI 22:53 → ENRESERV 23:49 → 2NA 07-22 00:38
PROVIDERS: Internal Medicine Endocrinology, Diabetes & Metabolism; Physician Assistant Medical
PROC: 3E1M39Z Irrigation of Peritoneal Cavity using Dialysate, Percutaneous Approach (ICD-10-PCS; principal; 2017-07-22)
DX: E11.649 Type 2 diabetes mellitus with hypoglycemia without coma (principal); I12.0 Hypertensive chronic kidney disease with stage 5 chronic kidney disease or end stage renal disease; E11.40 Type 2 diabetes mellitus with diabetic neuropathy, unspecified; E11.22 Type 2 diabetes mellitus with diabetic chronic kidney disease; N39.0 Urinary tract infection, site not specified; E87.70 Fluid overload, unspecified; N18.6 End stage renal disease; E11.65 Type 2 diabetes mellitus with hyperglycemia; T38.3X5A Adverse effect of insulin and oral hypoglycemic [antidiabetic] drugs, initial encounter; Z99.2 Dependence on renal dialysis; D72.829 Elevated white blood cell count, unspecified; R68.0 Hypothermia, not associated with low environmental temperature; Z87.891 Personal history of nicotine dependence; E78.5 Hyperlipidemia, unspecified; D64.9 Anemia, unspecified; Z79.4 Long term (current) use of insulin; Z86.718 Personal history of other venous thrombosis and embolism
CPT/HCPCS: 2NASP; 87075; ERO; 36592; 71045; 80307; 81001; 82436; 87040; 87449; 87450; 93005; 93010; 96374; 96375; 99291; G0480; J0696; J1644; J3490